=== PATIENT | male | born 1985 | race Caucasian/White ===

== ENCOUNTER 2022-02-14 13:23 | Emergency (ER) | payer BC ==
[~2022-02-14] VITALS: Ht 177.8 cm; Wt 91.2 kg
[2022-02-14 13:34] VITALS: BP_SYST 139
[2022-02-14] MEDS ORDERED: PSEU30TA36 PO (15:18)
[2022-02-14] MEDS ORDERED: IBUP-1971 PO (15:18)
[2022-02-14 15:25] VITALS: BP_SYST 135
== END 2022-02-14 15:26 | disposition home or self-care (01) ==
LOC: SED 13:23
DX: J40 Bronchitis, not specified as acute or chronic (principal); R05.9 Cough, unspecified; R09.81 Nasal congestion; Z79.899 Other long term (current) drug therapy; Z20.822 Contact with and (suspected) exposure to COVID-19
CPT/HCPCS: 36415; 71045; 99284